=== PATIENT | male | born 1985 | race Caucasian/White ===

== ENCOUNTER 2017-02-25 05:39 | Day surgery (SDC) | payer OTHER ==
[~2017-02-25 05:39] MED LIST: MEDROL2 MG PO; MOBIC15 MG PO; NAPROSYN500 MG PO; NORCO 5-325 TA1 EACH PO
[2017-02-25] MEDS ORDERED: ZYRTEC10 MG PO (05:57)
--- NOTE | 2017-02-25 08:25 | NUR ---
02/25/17 0825 Handy Samson 0823: PT MOANING AND STATES HE IS HURTING, SEE EMAR.
== END 2017-02-25 10:00 | disposition home or self-care (01) ==
LOC: DS 05:39
PROVIDERS: Orthopaedic Surgery
PROC: 0XQM0ZZ Repair Left Thumb, Open Approach (ICD-10-PCS; principal; 2017-02-25 06:45)
DX: S63.418A Traumatic rupture of collateral ligament of other finger at metacarpophalangeal and interphalangeal joint, initial encounter (principal); M25.342 Other instability, left hand
CPT/HCPCS: 01810; C1713; J0690; J1100; J1885; J2250; J2405; J2704; J3010; J7120